=== PATIENT | female | born 1940 | race Caucasian/White ===

== ENCOUNTER 2017-07-19 06:03 | Outpatient (CLI) | payer MEDICARE ==
[~2017-07-19] VITALS: Ht 165.1 cm; Wt 81.8 kg
--- NOTE | ~2017-07-19 | HEMODYNAMI ---
PATIENT:ANNIE SULLIVAN MEDICAL RECORD: [id number] : 40 LOCATION:[facility] ADMISSION DATE: 07/19/17 Generatedon:07/19/201710:16 Patient name: ANNIE SULLIVAN Patient #: [id number] SSN: : 1940 Date of study: 07/19/2017 Page: Of Hemodynamic Procedure Report Patient Data Patient Demographics Procedure consent was obtained First Name: ANNIE Gender: Female Last Name: LAURIE : 1940 Middle Initial: B Age: 77 year(s) Patient #: [id number] Race: Unknown Additional ID: [id number] Contact details Address: [address] [place] [address] State: [place] City: [place] Zip code: [address] Past Medical History Allergies: No known allergies Admission Admission Data Admission Date: 07/19/2017 Admission Time: 6:03 Procedure Procedure Types Cath Procedure Peripheral Cath Diagnostic Procedure Miscellaneous Procedure Description Procedure Date Procedure Date: 07/19/2017 Procedure Start Time: 9:52 Procedure Staff Name Function Jaime Alvarez MD Performing Physician Jess Owens RT Monitor Xavier Barkley RT Scrub Layla Fuchs RN Nurse Procedure Data Cath Procedure Fluoroscopy Diagnostic fluoroscopy Total fluoroscopy Time: 3.3 time: 3.3 min min Diagnostic fluoroscopy Total fluoroscopy dose: 174 dose: 174 mGy mGy Contrast Material Contrast Material Type Amount (ml) Isovue 300 155 Procedure Medications Medication Administration Route Dosage Lidocaine 1% added to field 20 Oxygen NC 3 l/min Heparin Flush Bag added to field 1 bags (1000units/500ml NS) Versed I.V. 2 mg Hemodynamics Rest Heart Rate: 73 (bpm) Snapshots Pre Cath Intra NCS Post Cath Vital Signs Time Heart Resp SPO2 etCO2 NIBP (mmHg) Rhythm Pain Sedation Rate (ipm) (%) (mmHg) Status Level (bpm) 9:42:21 73 15 100 28.2 161/81(133) NSR 0 (11) 10(A) , No pain 9:46:43 81 13 100 39.6 165/89(129) NSR 0 (11) 10(A) , No pain 9:51:11 79 18 100 35.7 164/90(130) NSR 0 (11) 10(A) , No pain 9:55:40 76 16 98 36.5 161/87(127) NSR 0 (11) 10(A) , No pain 10:00:02 64 15 99 25.1 163/83(123) NSR 0 (11) 10(A) , No pain 10:04:30 65 18 99 37.3 157/77(114) NSR 0 (11) 10(A) , No pain 10:08:55 72 15 100 36.5 153/83(123) NSR 0 (11) 10(A) , No pain 10:13:15 64 13 100 38.8 151/83(123) NSR 0 (11) 10(A) , No pain Medications Time Medication Route Dose Verified Delivered Reason Notes Effec tiveness by by 9:43:49 Lidocaine 1% added 20ml Laylabalwinder Sandoval for local to vial Jef Alvarez anesthetic field NELSON SHAH 9:44:13 Oxygen NC 3 Layla Layla used for l/min Jef Jef science interpreter RN 9:44:31 Heparin Flush added 1 Layla Jaime used for Bag to bags Jef Alvarez procedure (1000units/500ml field NELSON SHAH NS) 9:54:17 Versed I.V. 2 mg Jaime Layla for Alvarez Jef NELSON sedation Procedure Log Time Note 9:25:46 Xavier Barkley RT (R) (CV) sent for patient. Start room use. 9:25:52 Time tracking: Regular hours 9:25:57 Plan of Care:Hemodynamics will remain stable., Cardiac rhythm will remain stable., Comfort level will be maintained., Respiratory function will remain adequate., Patient/ family verbilizes understanding of procedure., Procedure tolerated without complication., Recovers from procedure without complications.. 9:26:03 Patient received from Outpatients to IR Alert and oriented. Tansferred to table in Supine position. 9:26:04 Correct patient and procedure confirmed by team. 9:26:06 Signed procedure consent form obtained from patient. 9:26:07 ECG and BP/O2 sat monitors applied to patient. 9:26:08 Full Disclosure recording started 9::09 - 9:26:12 H&P Date Dictated: 07/19/2017 H&P Addendum completed by physician on day of procedure. (MUST COMPLETE FOR ALL OUTPATIENTS). 9:26:13 Pre-procedure instructions explained to patient. 9:26:14 Pre-op teaching completed and patient verbalized understanding. 9:26:16 Family in waiting room. 9:26:17 Patient NPO since Midnight. 9:26:23 Use device set IR Diagnostic 9:26:24 Sterile Angiographic Pack opened to sterile field. 9:26:25 Bag Decanter () opened to sterile field. 9:41:03 Vital chart was started 9:41:05 Baseline sample Acquired. 9:41:08 - 9:42:14 Patient allergic to No known allergies 9:42:16 ----Pre-sedation anethsthesia assessment.---- 9:42:19 Previous problem with sedation/anesthesia? No ? 9:42:21 Snore? No 9:42:23 Sleep apnea? No 9:42:25 Deviated septum? No 9:42:31 Opens mouth fully? Yes 9:42:37 Sticks out tongue? Yes 9:42:44 Airway obstruction? No ? 9:43:02 Dentures? No ? 9:43:04 - 9:43:17 IV patent on arrival in left forearm with 0.9% NaCl at O. 9:43:24 Left groin area was prepped with chlora-prep and draped in sterile fashion 9:43:49 Lidocaine 1% 20ml vial added to field was administered by Jaime Alvarez MD; for local anesthetic; 9:44:13 Oxygen 3 l/min NC was administered by Layla Fuchs RN; used for procedure; 9:44:31 Heparin Flush Bag (1000units/500ml NS) 1 bags added to field was administered by Jaime Alvarez MD; used for procedure; 9:45:29 DOC .035 wire ([id number]) opened to sterile field. 9:45:29 PERCUTANEOUS ENTRY 19GA needle opened to sterile field. 9:45:30 SHEATH 5FR [place] ([id number]) opened to sterile field. 9:51:45 Physician arrived 9:51:54 --------ALL STOP TIME OUT------ 9:51:55 Final Timeout: patient, procedure, and site verified with staff and physician. All members of the team are in agreement. 9:52:12 Procedure started. 9:52:20 Local anesthetic to left femoral vein with Lidocaine 1% by Jaime Alvarez MD.INITIAL ACCESS ONLY 9:54:17 Versed 2 mg I.V. was administered by Layla Fuchs RN; for sedation; 10:09:19 Venous access obtained using ultrasound guidance. 10:09:20 DILATOR, VESSEL 4/20 opened to sterile field. 10:10:16 Venogram performed 10:13:37 Procedure ended.(Physican Out) 10:13:54 Fluoroscopy time 03.30 minutes. 10:13:59 Fluoroscopy dose: 174 mGy 10:13:59 Flurop Dose total: 174 10:14:05 Contrast amount:Isovue 300 155ml. 10:14:08 Procedure and supply charges have been captured, reviewed, submitted an d are correct. 10:15:58 Report given to Outpatients. 10:16:27 Vital chart was stopped Device Usage Item Name Manufacture Quantity Catalog Hospital Part Current Minimal Lot# / Number Charge Number Stock Stock Serial# Code Sterile Cardinal 1 [id number] 5 Angiographic Health Pack Bag Decanter [employer] 1 [id number] [id number] [id number] 5 (2002S) [employer] DOC .035 [facility] 1 [id number] [id number] 5 [id number] wire ([id number]) PERCUTANEOUS [facility] 1 [id number] [id number] 5 [id number] ENTRY 19GA needle SHEATH 5FR [employer] 1 [id number] 167420 [id number] 40 [place] ([id number]) DILATOR, [facility] 1 [id number] 13760 [id number] 5 [id number] VESSEL 09/28 Signature Audit [place] Stage Time Signature Unsigned Intra-Procedure 07/19/2017 Jess Owens 10:16:23 AM RT(R) Signatures Monitor : Jess Owens RT Signature : Date : Time : [address] [place] [address]
[2017-07-19] MEDS ORDERED: ESTROGEN IM (07:00)
[2017-07-19 07:01] LABS: BASOPHILS 0.7 % (0-2); EOSINOPHILS 3.6 % (0-7); HEMATOCRIT 38.5 % (36.0-48.0); HEMOGLOBIN 12.5 g/dL (12-16); IMMATURE GRANULOCYTES 0.3 % (0-5); LYMPHOCYTES 34.8 % (15-50); MCH 28.8 pg (26.0-34.0); MCHC 32.5 g/dL (31.0-37.0); MCV 88.7 fL (80.0-100.0); MEAN PLATELET VOLUME 11.2 fL (7.4-10.4); MONOCYTES 6.2 % (2-11); NEUTROPHILS 54.4 % (40-80); RBC 4.34 10x6/uL (4.00-5.40); RDW 13.3 % (11.5-14.5); WBC 6.9 10x3/uL (4.8-10.8)
[2017-07-19 07:02] VITALS: BP 148/70; Ht 165.1 cm; Wt 81.8 kg
[2017-07-19 07:07] LABS: PLATELET COUNT 254 10x3/uL (130-400)
[2017-07-19 07:16] LABS: ANION GAP 11.9 mmol/L (8-16); CALCIUM 8.9 mg/dL (8.5-10.1); POTASSIUM - SERUM 3.9 mmol/L (3.5-5.1)
[2017-07-19 07:30] LABS: INR 1.13 (0.85-1.17); PROTIME 14.1 SECONDS (11.6-15.0)
[2017-07-19 07:31] LABS: APTT 28.7 SECONDS (22.8-39.4)
== END 2017-07-19 13:40 | disposition home or self-care (01) ==
LOC: D.OPS 06:03 → D.RAD 08:00 → D.OPS 08:00
PROVIDERS: Specialist
DX: I83.893 Varicose veins of bilateral lower extremities with other complications (principal); Z01.812 Encounter for preprocedural laboratory examination